=== PATIENT | female | born 1955 | race Two or more races ===

== ENCOUNTER 2016-06-13 11:43 | Emergency (ER) | payer SELFPAY ==
[2016-06-13 12:05] VITALS: BMI 24.0
[2016-06-13] MEDS ORDERED: ACETAMINOPHEN 325 MG TABLET (FP) PO ONE (12:07)
[2016-06-13 13:45] VITALS: TEMP 100.4
[2016-06-13] MEDS ORDERED: SODIUM CHLORIDE 0.9% 1000 ML INFUS.BAG IV PRN (15:11)
[2016-06-13] MEDS ORDERED: SODIUM CHLORIDE 1,000 ML IV STA (15:11)
--- NOTE | 2016-06-13 15:11 | PDOC ---
History of Present Illness - General History Source: Patient, Family Exam Limitations: Language Barrier (Family member translated) - History of Present Illness Initial Comments: 06/13/16 16:04 The patient is a 60 year old female with no significant past medical history who presents to the emergency department with nasal congestion, cough, body aches, and fever for the last 2 days, The patient is visiting from [facility] and arrived in the [facility] 5 days ago. The patient states her symptoms came on suddenly. She reports a worsening runny nose and nasal congestion for the last 2 days. She also reports body aches, fever Tmax 102.3 F, and associated chills. The patient states she feels nauseous but denies any vomiting, diarrhea , or abdominal pain. The patient did not have a flu shot this year. She denies sick contacts. She was taking Advil at home for her symptoms with only slight relief. The patient is a smoker. She is allergic to Penicillin. <Janeth Curtis - Last Filed: 06/13/16 16:05> <Parker Russell - Last Filed: 06/13/16 17:11> - General Chief Complaint: Respiratory Stated Complaint: SOB, BODY ACHES Time Seen by Provider: 06/13/16 15:10 Past History <Janeth Curtis - Last Filed: 06/13/16 16:05> - Past Medical History Cardiac Disorders: Yes (HEART MURMUR) Hypercholesterolemia: Yes - Psycho/Social/Smoking Cessation Hx Anxiety: No Suicidal Ideation: No Smoking History: Never smoked Hx Alcohol Use: No Drug/Substance Use Hx: No Substance Use Type: None <Parker Russell - Last Filed: 06/13/16 17:11> - Past Medical History Allergies/Adverse Reactions: Allergies Allergy/AdvReac Type Severity Reaction Status Date / Time Penicillins Allergy Verified 06/13/16 12:06 Home Medications: Ambulatory Orders NK [No Known Home Medication] 06/13/16 Review of Systems - Review of Systems Constitutional: Yes: Chills, Fever HEENTM: Yes: Nose Congestion. No: Throat Pain Respiratory: Yes: Cough, Shortness of Breath Cardiac (ROS): No: Chest Pain ABD/GI: Yes: Nausea. No: Diarrhea, Vomiting : No: Dysuria Musculoskeletal: Yes: Muscle Pain Integumentary: No: Rash Neurological: Yes: Headache All Other Systems: Reviewed and Negative <Parker Russell - Last Filed: 06/13/16 17:11> *Physical Exam - Vital Signs Last Vital Signs Temp Pulse Resp BP Pulse Ox 100.4 F H 93 H 20 143/78 96 06/13/16 13:45 06/13/16 12:01 06/13/16 12:01 06/13/16 12:01 06/13/16 12:01 - Physical Exam Comments: 06/13/16 16:04 GENERAL: The patient is awake, alert, and fully oriented, in no acute distress. HEAD: Normal with no signs of trauma. +Right maxillary sinus discomfort to palpation. EYES: Pupils equal, round and reactive to light, extraocular movements intact, sclera anicteric, conjunctiva clear with no pallor. ENT: +Nasal congestion, ears normal, oropharynx clear without exudates. Moist mucous membranes. NECK: Normal range of motion, supple without lymphadenopathy, JVD, or masses. LUNGS: Breath sounds equal, clear to auscultation bilaterally. +Wheezing type cough at the bedside. HEART: +Slight tachycardia and regular rhythm, normal S1 and S2 with 1/6 systolic ejection murmur, no rub. ABDOMEN: Soft/nontender/nondistended. BS wnl. No guarding or rebound. No palpable masses. No hepatosplenomegaly. EXTREMITIES: Normal range of motion, no edema. No clubbing or cyanosis. No cords, erythema, or tenderness. NEUROLOGICAL: Cranial nerves II through XII grossly intact. Normal speech, normal gait. PSYCH: Normal mood, normal affect. SKIN: Warm, Dry, normal turgor, no rashes or lesions noted. <Janeth Curtis - Last Filed: 06/13/16 16:05> - Vital Signs Last Vital Signs Temp Pulse Resp BP Pulse Ox 100.4 F H 93 H 20 143/78 96 06/13/16 13:45 06/13/16 12:01 06/13/16 12:01 06/13/16 12:01 06/13/16 12:01 <Parker Russell - Last Filed: 06/13/16 17:11> ED Treatment Course - LABORATORY CBC & Chemistry Diagram: 06/13/16 16:00 06/13/16 16:00 - Medications Given in the ED: ED Medications Discontinued Medications Generic Name Dose Route Start Last Admin Trade Name Freq PRN Reason Stop Dose Admin Acetaminophen 650 mg 06/13/16 12:07 06/13/16 12:08 Tylenol - PO 06/13/16 12:08 650 mg NOW ONE Administration <Janeth Curtis - Last Filed: 06/13/16 16:05> - LABORATORY CBC & Chemistry Diagram: 06/13/16 16:00 06/13/16 16:00 - Medications Given in the ED: ED Medications Discontinued Medications Generic Name Dose Route Start Last Admin Trade Name Freq PRN Reason Stop Dose Admin Acetaminophen 650 mg 06/13/16 12:07 06/13/16 12:08 Tylenol - PO 06/13/16 12:08 650 mg NOW ONE Administration <Parker Russell - Last Filed: 06/13/16 17:11> Medical Decision Making - Medical Decision Making 06/13/16 15:55 A portion of this note was documented by scribe services under my direction. I have reviewed the details of the note, within reason, and agree with the documentation with the following case summary and management plan written by me. 60-year-old female with no significant past medical history recently traveled here from [place] presents with 2-3 days of URI symptoms with nasal congestion, cough, fevers or chills. Febrile, tachycardic, dry cough Exam as noted 60-year-old female with viral syndrome for 2 or 3 days, question influenza, rule out pneumonia. Generally well-appearing despite vital signs. Pt from [facility], where MERS is not prevalent. labs, cxr, influenza swab trial of nebulizer anti-pyretic, IVF reassess, dispo accordingly: borderline O2 sat, will reassess after nebs. 06/13/16 16:46 CBC normal, no leukocytosis. Lactate negative. Chemistries hemolyzed, will repeat. Chest x-ray with increased interstitial markings but no focal infiltrate or cardiomegaly. 06/13/16 17:08 Influenza A positive. Pt resting comfortably, awaiting chemistries. Receiving IVF and nebs, will start treatment with Tamiflu. Patient was signed out to the oncoming ED physician to follow-up the results, reassess the patient, and dispo accordingly. If O2 sat improves and ambulating comfortably, can be discharged on tamiflu and nebs since she has no comorbidities. Otherwise, may require admission. <Parker Russell - Last Filed: 06/13/16 17:11> *DC/Admit/Observation/Transfer - Attestations Scribe Attestion: 06/13/16 15:18 Documentation prepared by Janeth Curtis, acting as medical receptionist medical assistant for Parker Russell MD. <Janeth Curtis - Last Filed: 06/13/16 16:05> <Parker Russell - Last Filed: 06/13/16 17:11> Diagnosis at time of Disposition: Viral syndrome, Influenza due to influenza virus, type A, human Fever Qualifiers: Fever type: unspecified Qualified Code(s): R50.9 - Fever, unspecified - Discharge Dispostion Condition at time of disposition: Fair
[2016-06-13 15:20] VITALS: PULSE 80
[2016-06-13 16:09] LABS: BASOPHIL 0.7 % (0-2.0); EOSINOPHIL 0.2 % (0-4.5); MCH 30.2 pg (25.7-33.7); MCHC 33.3 g/dl (32.0-36.0); MEAN CELL VOLUME 90.8 fl (80-96); MEAN PLT VOLUME 8.5 fl (7.5-11.1); NEUTROPHILS 82.7 % (42.8-82.8); PLATELET COUNT 287 K/MM3 (134-434); WHITE BLOOD COUNT 6.4 K/mm3 (4.0-10.0)
[2016-06-13] MEDS ORDERED: ALBUTEROL SO4 2.5/IPRATROPIUM 0.5 INH SOL 3 ML VIAL.NEB. NEB SCH (16:15)
[2016-06-13] MEDS ORDERED: OSELTAMIVIR PHOSPHATE 75 MG CAPSULE PO ONE (17:08)
[2016-06-13] MEDS ORDERED: KETOROLAC TROMETHAMINE 30 MG/1 ML VIAL IVPUSH ONE (17:32)
[2016-06-13] MEDS ORDERED: KETOROLAC TROMETHAMINE 30 MG/1 ML VIAL ONE (17:38)
[2016-06-13] MEDS ORDERED: OSELTAMIVIR PHOSPHATE 75 MG CAPSULE ONE (17:58)
[2016-06-13 18:16] VITALS: BP 100/51
[2016-06-13 18:32] LABS: ALBUMIN 3.4 g/dl (3.4-5.0); ANION GAP 12 (8-16); BILIRUBIN,TOTAL 0.3 mg/dL (0.2-1.0); CALCIUM 7.7 mg/dL (8.5-10.1); CO2 23 mmol/L (21-32); CREATININE 0.7 mg/dL (0.55-1.02); GLUCOSE,RANDOM 109 mg/dL (74-106); SGOT/AST 14 U/L (15-37); SGPT/ALT 18 U/L (12-78); TOT PROT 6.4 g/dl (6.4-8.2)
[2016-06-13 18:34] LABS: ALK PHOS 87 U/L (45-117); TROPONIN I < 0.02 ng/ml (0.00-0.05)
--- NOTE | 2016-06-13 18:58 | PDOC ---
*Physical Exam - Vital Signs Last Vital Signs Temp Pulse Resp BP Pulse Ox 100.4 F H 80 18 100/51 93 L 06/13/16 13:45 06/13/16 17:00 06/13/16 17:00 06/13/16 17:00 06/13/16 17:00 ED Treatment Course - LABORATORY CBC & Chemistry Diagram: 06/13/16 16:00 06/13/16 17:48 - ADDITIONAL ORDERS Additional order review: Laboratory Results 06/13/16 06/13/16 06/13/16 17:48 16:00 16:00 INR PTT (Actin FS) Sodium 140 Potassium 3.5 Chloride 105 Carbon Dioxide 23 Anion Gap 12 BUN 13 Creatinine 0.7 Creat Clearance w eGFR > 60 Random Glucose 109 H Lactic Acid 0.822 Calcium 7.7 L Total Bilirubin 0.3 AST 14 L ALT 18 Alkaline Phosphatase 87 Creatine Kinase 67 Troponin I < 0.02 Total Protein 6.4 Albumin 3.4 Blood Type Cancelled Antibody Screen Cancelled Spec Expiration Date Cancelled 06/13/16 06/13/16 16:00 16:00 INR Cancelled PTT (Actin FS) Cancelled Sodium Cancelled Potassium Cancelled Chloride Cancelled Carbon Dioxide Cancelled Anion Gap Cancelled BUN Cancelled Creatinine Cancelled Creat Clearance w eGFR Cancelled Random Glucose Cancelled Lactic Acid Calcium Cancelled Total Bilirubin Cancelled AST Cancelled ALT Cancelled Alkaline Phosphatase Cancelled Creatine Kinase Cancelled Troponin I Cancelled Total Protein Cancelled Albumin Cancelled Blood Type Antibody Screen Spec Expiration Date 06/13/16 16:30 Influenza Types A,B Antigen (SIN) - Final Nasopharyngeal Swab - Final 06/13/16 16:00 RBC 3.97 MCV 90.8 MCHC 33.3 RDW 14.0 MPV 8.5 Neutrophils % 82.7 Lymphocytes % 10.6 Monocytes % 5.8 Eosinophils % 0.2 Basophils % 0.7 - Medications Given in the ED: ED Medications Discontinued Medications Generic Name Dose Route Start Last Admin Trade Name Freq PRN Reason Stop Dose Admin Acetaminophen 650 mg 06/13/16 12:07 06/13/16 12:08 Tylenol - PO 06/13/16 12:08 650 mg NOW ONE Administration Albuterol/Ipratropium 1 amp 06/13/16 16:15 06/13/16 16:18 Duoneb - NEB 01/04/17 16:46 1 amp Q15M MARY Administration Sodium Chloride 1,000 mls @ 1,000 mls/hr 06/13/16 15:11 06/13/16 16:17 Normal Saline - IV 06/13/16 16:10 1,000 mls/hr ASDIR STA Administration Ketorolac Tromethamine 30 mg 06/13/16 17:32 06/13/16 17:42 Toradol Injection - IVPUSH 06/13/16 17:33 30 mg ONCE ONE Administration Oseltamivir Phosphate 75 mg 06/13/16 17:08 06/13/16 17:59 Tamiflu - PO 06/13/16 17:09 75 mg ONCE ONE Administration Medical Decision Making - Medical Decision Making 06/13/16 18:53 Sign-out received from outgoing Emergency Physician Dr. Russell Pt interviewed and examined Ancillary studies reviewed Case discussed in detail with oncoming Emergency Physician including history, physical exam and ancillary studies. CBC, BMP 06/13/16 16:00 06/13/16 17:48 CMP Sodium 140 mmol/L (136-145) 06/13/16 17:48 Potassium 3.5 mmol/L (3.5-5.1) 06/13/16 17:48 Chloride 105 mmol/L (98-107) 06/13/16 17:48 Carbon Dioxide 23 mmol/L (21-32) 06/13/16 17:48 Anion Gap 12 (8-16) 06/13/16 17:48 BUN 13 mg/dL (7-18) 06/13/16 17:48 Creatinine 0.7 mg/dL (0.55-1.02) 06/13/16 17:48 Creat Clearance w eGFR > 60 (>60) 06/13/16 17:48 Random Glucose 109 mg/dL (74-106) H 06/13/16 17:48 Lactic Acid 0.822 mmol/L (0.4-2.0) 06/13/16 16:00 Calcium 7.7 mg/dL (8.5-10.1) L 06/13/16 17:48 Total Bilirubin 0.3 mg/dL (0.2-1.0) 06/13/16 17:48 AST 14 U/L (15-37) L 06/13/16 17:48 ALT 18 U/L (12-78) 06/13/16 17:48 Alkaline Phosphatase 87 U/L (45-117) 06/13/16 17:48 Creatine Kinase 67 IU/L (26-192) 06/13/16 17:48 Troponin I < 0.02 ng/ml (0.00-0.05) 06/13/16 17:48 Total Protein 6.4 g/dl (6.4-8.2) 06/13/16 17:48 Albumin 3.4 g/dl (3.4-5.0) 06/13/16 17:48 06/13/16 18:54 Chest x-ray demonstrates no pulmonary infiltrates, no pneumothorax a large pleural effusions. Patient tested positive for influenza a. The patient was reassessed. She is more comfortable and breathing more comfortably. Pt states she feels okay to go home. Will discharge with tamiflu and ibuprofen and supportive care. Pt verbalizes understanding and agrees with plan. I discussed the physical exam findings, ancillary test results and final diagnoses with the patient. I answered all of the patient's questions. The patient was satisfied with the care received and felt comfortable with the discharge plan and treatment plan. The patient will call their primary care physician within 24 hours to arrange follow-up and will return to the Emergency Department with any new, persistant or worsening symptoms. *DC/Admit/Observation/Transfer Diagnosis at time of Disposition: Viral syndrome, Influenza A Fever Qualifiers: Fever type: unspecified Qualified Code(s): R50.9 - Fever, unspecified - Discharge Dispostion Disposition: HOME Condition at time of disposition: Improved Admit: No - Prescriptions Prescriptions: Ibuprofen 600 mg PO Q6H PRN #20 tablet PRN Reason: Fever/Pain Oseltamivir Phosphate [Tamiflu] 75 mg PO BID #10 capsule - Patient Instructions Printed Discharge Instructions: DI for Influenza -- Adult Additional Instructions: You have tested positive for INFLUENZA A. Please take the tamiflu as prescribed. Take 600 mg ibuprofen every 6 hours as needed for fever/pain. It may take several days before it gets better.
== END 2016-06-13 19:42 | disposition home or self-care (01) ==
LOC: JER 11:43
PROC: 3E0F7GC Introduction of Other Therapeutic Substance into Respiratory Tract, Via Natural or Artificial Opening (ICD-10-PCS; principal; 2016-06-13)
PROC: 3E0337Z Introduction of Electrolytic and Water Balance Substance into Peripheral Vein, Percutaneous Approach (ICD-10-PCS; 2016-06-13)
PROC: 3E0333Z Introduction of Anti-inflammatory into Peripheral Vein, Percutaneous Approach (ICD-10-PCS; 2016-06-13)
DX: J09.X2 Influenza due to identified novel influenza A virus with other respiratory manifestations (principal); B34.9 Viral infection, unspecified; R01.1 Cardiac murmur, unspecified; E78.00 Pure hypercholesterolemia, unspecified
CPT/HCPCS: 36415; 71010-TC; 80053; 82550; 83605; 84484; 85025; 87040; 87804; 99282-25